=== PATIENT | female | born 1955 | race Caucasian/White ===

== ENCOUNTER → 2024-07-23 07:46 | Outpatient (REF) | payer OTHER, SELFPAY | LOC: WDC 07:46 | PROVIDERS: ATTENDING PHYSICIAN Nurse Practitioner Adult Health; FAMILY PHYSICIAN Physician Assistant Medical | DX: Z12.31 Encounter for screening mammogram for malignant neoplasm of breast (principal); Z85.3 Personal history of malignant neoplasm of breast | CPT/HCPCS: 77063; 77067 ==

== ENCOUNTER → 2025-07-26 11:58 | Outpatient (REF) | payer MEDICARE, SELFPAY | LOC: WDC 11:58 | PROVIDERS: ATTENDING PHYSICIAN Nurse Practitioner Adult Health; FAMILY PHYSICIAN Family Medicine | DX: Z12.31 Encounter for screening mammogram for malignant neoplasm of breast (principal) | CPT/HCPCS: 77063; 77067 ==